=== PATIENT | female | born 1955 | race Caucasian/White ===

== ENCOUNTER → 2018-05-20 | Outpatient (CLI) | payer BC ==
--- NOTE | 2018-06-02 09:07 | MM ---
Reason for exam: screening (asymptomatic). Last mammogram was performed 8 years and 6 months ago. History: Patient is postmenopausal. Benign stereotactic core biopsy of the left breast. Took estrogen for 10 years beginning at age 40. Physical Findings: A clinical breast exam by your physician is recommended on an annual basis and results should be correlated with mammographic findings. MG 3D Screening Mammo W/Cad Bilateral CC and MLO view(s) were taken. Prior study comparison: September 12, 2016, mammogram, performed at [facility]. August 10, 2015, mammogram, performed at [facility]. The breast tissue is heterogeneously dense. This may lower the sensitivity of mammography. There are benign appearing round oval circumscribed stable bilateral breast masses back to 2014. No suspicious abnormality. Left biopsy marker noted. No significant changes when compared with prior studies. ASSESSMENT: Benign, BI-RAD 2 RECOMMENDATION: Routine screening mammogram of both breasts in 1 year.
== END | disposition home or self-care (01) ==
LOC: RADMAMWWP 12:38
PROVIDERS: ATTEND Internal Medicine
DX: Z12.31 Encounter for screening mammogram for malignant neoplasm of breast (principal)
CPT/HCPCS: 77063; 77067

== ENCOUNTER → 2018-07-21 | Outpatient (CLI) | payer BC ==
[2018-07-21 08:39] LABS: HCT 44.3 % (34.0-46.0); HGB 14.8 gm/dL (11.4-16.0); MCH 29.6 pg (25.0-35.0); MCHC 33.4 g/dL (31.0-37.0); MCV 88.6 fL (80.0-100.0); Mean Platelet Volume 6.8; Platelet Count 261 k/uL (150-450); RDW 13.5 % (11.5-15.5); WBC 5.1 k/uL (3.8-10.6)
[2018-07-21 08:50] LABS: Appearance,Urine Clear (Clear); Bilirubin,Urine Negative (Negative); Blood,Urine Negative (Negative); Color,Urine Light Yellow; Glucose,Urine (UA) Negative (Negative); Ketones,Urine Negative (Negative); Leukocyte Esterase,Urine Negative (Negative); Nitrite,Urine Negative (Negative); Protein,Urine Negative (Negative); Specific Gravity,Urine 1.007 (1.001-1.035); Urobilinogen,Urine <2.0 mg/dL (<2.0)
[2018-07-21 08:58] LABS: ALT 38 U/L (9-52); AST 27 U/L (14-36); Albumin 4.3 g/dL (3.5-5.0); Alkaline Phosphatase 52 U/L (38-126); Anion Gap 9 mmol/L; Blood Urea Nitrogen 14 mg/dL (7-17); Calcium 9.5 mg/dL (8.4-10.2); Carbon Dioxide 27 mmol/L (22-30); Chloride 104 mmol/L (98-107); Glucose 93 mg/dL (74-99); Phosphorus 4.3 mg/dL (2.5-4.5); Potassium 4.4 mmol/L (3.5-5.1); Sodium 140 mmol/L (137-145); Total Bilirubin 0.8 mg/dL (0.2-1.3); Total Protein 6.9 g/dL (6.3-8.2)
== END | disposition home or self-care (01) ==
LOC: LABWHC1 07:54
PROVIDERS: ATTEND Internal Medicine Nephrology
DX: N39.0 Urinary tract infection, site not specified (principal); N18.9 Chronic kidney disease, unspecified; D63.1 Anemia in chronic kidney disease; E83.39 Other disorders of phosphorus metabolism
CPT/HCPCS: 36415; 80053; 81003; 84100; 85027

== ENCOUNTER → 2018-08-13 | Outpatient (CLI) | payer BC ==
--- NOTE | 2018-08-13 12:33 | US ---
EXAMINATION TYPE: US kidneys/renal and bladder DATE OF EXAM: 08/13/2018 COMPARISON: NONE CLINICAL HISTORY: R10.9 Rt flank Pain. BILAT FLANK PAIN FOR YEARS, NO HEMATURIA, NO H/O STONES EXAM MEASUREMENTS: Right Kidney: 10.1 x 5.0 x 4.6 cm Left Kidney: 11.0 x 4.6 x 4.7 cm Right Kidney: No hydronephrosis or masses seen Left Kidney: No hydronephrosis or masses seen Bladder: wnl Bilateral Jets seen: Yes IMPRESSION: 1. Normal renal ultrasound.
== END | disposition home or self-care (01) ==
LOC: RADUSWWP 09:26
PROVIDERS: ATTEND Internal Medicine Nephrology
DX: R10.9 Unspecified abdominal pain (principal)
CPT/HCPCS: 76770

== ENCOUNTER → 2018-09-20 | Outpatient (CLI) | payer BC ==
[2018-09-20 09:00] LABS: Basophils # (A) 0.1 k/uL (0-0.2); Basophils % (A) 1 %; Eosinophils # (A) 0.1 k/uL (0-0.7); Eosinophils % (A) 1 %; HCT 42.9 % (34.0-46.0); HGB 14.8 gm/dL (11.4-16.0); Lymphocytes # (A) 1.9 k/uL (1.0-4.8); Lymphocytes % (A) 39 %; MCH 30.5 pg (25.0-35.0); MCHC 34.5 g/dL (31.0-37.0); MCV 88.3 fL (80.0-100.0); Mean Platelet Volume 6.4; Monocytes # (A) 0.2 k/uL (0-1.0); Monocytes % (A) 4 %; Neutrophils # (A) 2.7 k/uL (1.3-7.7); Neutrophils % (A) 54 %; Platelet Count 242 k/uL (150-450); RBC 4.85 m/uL (3.80-5.40); RDW 13.5 % (11.5-15.5)
[2018-09-20 09:04] LABS: Appearance,Urine Clear (Clear); Bilirubin,Urine Negative (Negative); Blood,Urine Negative (Negative); Color,Urine Light Yellow; Glucose,Urine (UA) Negative (Negative); Ketones,Urine Negative (Negative); Leukocyte Esterase,Urine Negative (Negative); Nitrite,Urine Negative (Negative); PH, Urine 6.5 (5.0-8.0); Protein,Urine Negative (Negative); Specific Gravity,Urine 1.011 (1.001-1.035); Urobilinogen,Urine <2.0 mg/dL (<2.0)
[2018-09-20 16:24] LABS: Iron Saturation 28.44 (12.00-45.00)
[2018-09-20 16:28] LABS: Albumin 4.6 g/dL (3.80-4.90); Anion Gap 7.5 mmol/L (4.00-12.00); Calcium 9.4 mg/dL (8.7-10.3); Carbon Dioxide 27.5 mmol/L (21.6-31.8); Magnesium 1.9 mg/dL (1.5-2.4); Parathyroid Hormone Intact 47.6 pg/mL (14.0-72.0); Phosphorus 3.6 mg/dL (2.4-5.1); Potassium 3.4 mmol/L (3.5-5.5); Uric Acid 3.9 mg/dL (2.9-7.7)
[2018-09-20 16:31] LABS: Vitamin D 25 Hydroxy 65.4 ng/mL (30.0-100.0)
[2018-09-20 17:59] LABS: Creatinine,Urine Random 64.6 mg/dL
[2018-09-20 19:00] LABS: Total Protein,Urine Random 4.7 mg/dL (0.0-13.5)
== END ==
LOC: LABWHC1 08:18
PROVIDERS: ATTEND Internal Medicine Nephrology
DX: N39.0 Urinary tract infection, site not specified (principal); E21.3 Hyperparathyroidism, unspecified; E55.9 Vitamin D deficiency, unspecified; D64.9 Anemia, unspecified; M10.9 Gout, unspecified; R80.9 Proteinuria, unspecified; R10.9 Unspecified abdominal pain
CPT/HCPCS: 36415; 80048; 81003; 82040; 82306; 82570; 82728; 83540; 83550; 83735; 83970; 84100; 84156; 84550; 85025

== ENCOUNTER → 2019-08-11 | Outpatient (CLI) | payer BC ==
--- NOTE | 2019-08-12 07:35 | US ---
EXAMINATION TYPE: US thyroid st tissue head/neck DATE OF EXAM: 08/11/2019 COMPARISON: US dated 07/10/2016 CLINICAL HISTORY: E04.9 Thyroid nodule. F/U nodules GLAND SIZE: Right Lobe: 4.6 x 1.6 x 1.7 cm Overall Parenchyma: heterogenous Left Lobe: 4.1 x 1.3 x 1.1 cm Overall Parenchyma: heterogeneous Isthmus Thickness: 0.3 cm The thyroid gland is diffusely hypervascular. NODULES RIGHT: # of nodules measured on right: 2 1. 0.8 X 0.5 x 0.7 cm hypoechoic mixed nodule at the upper pole with well-defined margins; This no dule is wider than tall and shows intranodular vascularity. Prior size: Not visualized on prior 2. 0.5 X 0.4 x 0.4 cm echogenic solid nodule at the lower pole with calcified rim. This nodule is w ider than tall and shows no intranodular vascularity. Prior size: 0.6 x 0.4 x 0.5 cm LEFT: # of nodules measured on left: 1 1. 0.4 X 0.4 x 0.4 cm echogenic solid nodule at the lower pole with calcified rim. This nodule is w ider than tall and shows no intranodular vascularity. Prior size: 0.4 x 0.4 x 0.4 cm Bilateral neck scanned, no evidence of lymphadenopathy. Multiple sub-centimeter nodules within right lobe, largest 2 measured. Single calcified nodule within left lobe. IMPRESSION: There are similar bilateral thyroid nodules with one new 8 mm right thyroid nodule seen t hat appears partially cystic. Diffuse thyroid heterogeneity and hypervascularity suggest underlying t hyroiditis.
== END | disposition home or self-care (01) ==
LOC: RADUSWWP 16:41
PROVIDERS: ATTEND Internal Medicine
DX: E04.1 Nontoxic single thyroid nodule (principal); R93.89 Abnormal findings on diagnostic imaging of other specified body structures
CPT/HCPCS: 76536

== ENCOUNTER 2020-02-21 11:42 | Emergency (ER) | payer BC ==
[2020-02-21] MEDS ORDERED: SODIUM CHLORIDE 0.9% 500 ML 500 ML IV ONE (12:07)
--- NOTE | 2020-02-21 12:12 | ED ---
Headache HPI - General Chief Complaint: Headache Stated Complaint: pain in neck and left ear Time Seen by Provider: 02/21/20 12:00 Mode of arrival: ambulatory Limitations: no limitations - History of Present Illness Initial Comments: 64 year feel presenting today for chief complaint of pain behind the left ear that radiates down towards the neck x 1 day. Patient states that she has had a very sharp pain that comes and goes to up-to-date since yesterday morning. She stated radiates down towards the left posterior aspect of the neck. Patient denies any anterior neck pain. Patient denies this being a "headache" more like head pain. She has difficulty describing the sensation. Patient states it is "electrifying" causing her to flail her arms. Patient denies vomiting, nausea, visual changes, history of aneursym, pain within the ear, fever, URI symptoms, cough. Patient states when she turns her head to the right she can get the pain at times to reproduce. Patient denies neck stiffness. Patient states she contacted her primary care office today Dr. Mckeon who instructed her to come to the ER for imaging studies. Patient states she did not feel like she needed to come in. Remaining ROS (-). Upon arrival patient is very pleasant appears well and currently asymptomatic. - Related Data Home Medications Medication Instructions Recorded Confirmed Loratadine [Claritin] 10 mg PO DAILY 08/29/14 09/01/14 Triamterene-Hctz 37.5-25Mg 1 tab PO DAILY 08/29/14 09/01/14 [Dyazide 37.5-25 Capsule] Previous Rx's Medication Instructions Recorded Cyclobenzaprine [Flexeril] 10 mg PO HS PRN 7 Days #7 tab 02/21/20 predniSONE 50 mg PO DAILY 5 Days #5 tab 02/21/20 Allergies Allergy/AdvReac Type Severity Reaction Status Date / Time Sulfa (Sulfonamide Allergy Rash/Hives Verified 02/21/20 11:55 Antibiotics) Tetracyclines Allergy Unknown Verified 02/21/20 11:55 Review of Systems ROS Statement: Those systems with pertinent positive or pertinent negative responses have been documented in the HPI. ROS Other: All systems not noted in ROS Statement are negative. Past Medical History Past Medical History: Hypertension, Seizure Disorder Additional Past Medical History / Comment(s): HAD ONE SEIZURE APPROX 2005, NONE SINCE, PERIPHERAL EDEMA History of Any Multi-Drug Resistant Organisms: None Reported Past Surgical History: Appendectomy, Hysterectomy, Orthopedic Surgery, Tonsillectomy Past Anesthesia/Blood Transfusion Reactions: No Reported Reaction Past Psychological History: No Psychological Hx Reported Smoking Status: Never smoker Past Alcohol Use History: Rare Past Drug Use History: None Reported General Exam - General Exam Comments Initial Comments: General: The patient is awake and alert, in no distress, and does not appear acutely ill. Eye: +3 mm pupils are equal, round and reactive to light, extra-ocular movements are intact. No nystagmus. There is normal conjunctiva bilaterally. No signs of icterus. Ears, nose, mouth and throat: There are moist mucous membranes and no oral lesions. No nuchal rigidity. Full range motion of the cervical spine without difficulty. Neck: The neck is supple, there is no tenderness or JVD. Cardiovascular: There is a regular rate and rhythm. No murmur, rub or gallop is appreciated. Respiratory: Lungs are clear to auscultation, respirations are non-labored, breath sounds are equal. No wheezes, stridor, rales, or rhonchi. Musculoskeletal: Normal ROM, no tenderness. Strength 5/5. Sensation intact. Radila pulses equal bilaterally 2+. Neurological: A&O x 3. CN II-XII intact, full strength of the UE and LE b/l. Coordination appears grossly intact. Speech is normal. Skin: Skin is warm and dry and no rashes or lesions are noted. Psychiatric: Cooperative, appropriate mood & affect, normal judgment. Limitations: no limitations Course Vital Signs 02/21/20 02/21/20 11:50 14:42 Temperature 97.9 F 98.3 F Pulse Rate 75 65 Respiratory 18 15 Rate Blood Pressure 137/85 143/86 O2 Sat by Pulse 99 99 Oximetry Medical Decision Making - Medical Decision Making Very well-appearing 64 year old female presented for posterior head pain. P atient states this does not feel like a headache he feels like is sharp shooting pain that radiates to the base the scalp. Patient has a lesions in the hair. Patient is no focal neurological deficits. Patient has no nuchal rigidity. Patient was sent in for imaging studies imaging studies revealed no acute intracranial process. Patient's pain controlled is colicky, not consistent. patient labs stable, VS wtihin acceptable limits. Ddx included occipital neuralgia, radiulopathy. Patient will be discharged with steroids. recommended close pcp f/u. Patient case discussed with Dr. Solano patient discharged appearing wel. - Lab Data Result diagrams: 02/21/20 12:24 02/21/20 12:24 Lab Results 02/21/20 02/21/20 Range/Units 12:24 12:24 WBC 5.9 (3.8-10.6) k/uL RBC 5.09 (3.80-5.40) m/uL Hgb 15.2 (11.4-16.0) gm/dL Hct 44.8 (34.0-46.0) % MCV 88.0 (80.0-100.0) fL MCH 29.9 (25.0-35.0) pg MCHC 33.9 (31.0-37.0) g/dL RDW 12.8 (11.5-15.5) % Plt Count 276 (150-450) k/uL Neutrophils % 59 % Lymphocytes % 31 % Monocytes % 6 % Eosinophils % 2 % Basophils % 1 % Neutrophils # 3.5 (1.3-7.7) k/uL Lymphocytes # 1.8 (1.0-4.8) k/uL Monocytes # 0.3 (0-1.0) k/uL Eosinophils # 0.1 (0-0.7) k/uL Basophils # 0.0 (0-0.2) k/uL Sodium 138 (137-145) mmol/L Potassium 3.5 (3.5-5.1) mmol/L Chloride 101 (98-107) mmol/L Carbon Dioxide 28 (22-30) mmol/L Anion Gap 9 mmol/L BUN 17 (7-17) mg/dL Creatinine 0.71 (0.52-1.04) mg/dL Est GFR (CKD-EPI)AfAm >90 (>60 ml/min/1.73 sqM) Est GFR (CKD-EPI)NonAf >90 (>60 ml/min/1.73 sqM) Glucose 93 (74-99) mg/dL Calcium 9.5 (8.4-10.2) mg/dL Total Bilirubin 1.0 (0.2-1.3) mg/dL AST 32 (14-36) U/L ALT 33 (4-34) U/L Alkaline Phosphatase 53 (38-126) U/L Total Protein 7.4 (6.3-8.2) g/dL Albumin 4.5 (3.5-5.0) g/dL Disposition Clinical Impression: Pleural thickening, Head pain Disposition: HOME SELF-CARE Condition: Good Instructions (If sedation given, give patient instructions): Acute Headache (ED) Additional Instructions: Please use medication as discussed. Please follow-up with family doctor in the next 2 days. Please return to emergency room if the symptoms increase or worsen or for any other concerns. Prescriptions: Cyclobenzaprine [Flexeril] 10 mg PO HS PRN 7 Days #7 tab PRN Reason: Muscle Spasm predniSONE 50 mg PO DAILY 5 Days #5 tab Is patient prescribed a controlled substance at d/c from ED?: No Referrals: Silvana Mckeon MD [Primary Care Provider] - 1-2 days Time of Disposition: 13:57
[2020-02-21 12:40] LABS: Basophils % (A) 1 %; Eosinophils # (A) 0.1 k/uL (0-0.7); Eosinophils % (A) 2 %; HCT 44.8 % (34.0-46.0); HGB 15.2 gm/dL (11.4-16.0); Lymphocytes # (A) 1.8 k/uL (1.0-4.8); Lymphocytes % (A) 31 %; MCH 29.9 pg (25.0-35.0); MCHC 33.9 g/dL (31.0-37.0); Mean Platelet Volume 7.1; Monocytes # (A) 0.3 k/uL (0-1.0); Monocytes % (A) 6 %; Neutrophils # (A) 3.5 k/uL (1.3-7.7); Neutrophils % (A) 59 %; Platelet Count 276 k/uL (150-450); RBC 5.09 m/uL (3.80-5.40); RDW 12.8 % (11.5-15.5); WBC 5.9 k/uL (3.8-10.6)
[2020-02-21 12:54] LABS: ALT 33 U/L (4-34); AST 32 U/L (14-36); African American GFR (CKD) >90 (>60 ml/min/1.73 sqM); Albumin 4.5 g/dL (3.5-5.0); Alkaline Phosphatase 53 U/L (38-126); Anion Gap 9 mmol/L; Blood Urea Nitrogen 17 mg/dL (7-17); Calcium 9.5 mg/dL (8.4-10.2); Carbon Dioxide 28 mmol/L (22-30); Chloride 101 mmol/L (98-107); Glucose 93 mg/dL (74-99); Non-African American GFR(CKD) >90 (>60 ml/min/1.73 sqM); Potassium 3.5 mmol/L (3.5-5.1); Sodium 138 mmol/L (137-145); Total Protein 7.4 g/dL (6.3-8.2)
--- NOTE | 2020-02-21 13:40 | CT ---
EXAMINATION TYPE: CT brain wo con DATE OF EXAM: 02/21/2020 HISTORY: Headache, neck pain CT DLP: 1089 mGycm. Automated Exposure Control for Dose Reduction was Utilized. TECHNIQUE: CT scan of the head is performed without contrast. COMPARISON: None FINDINGS: There is no acute intracranial hemorrhage or midline shift identified. There is diffuse v entricular and sulcal prominence consistent with diffuse age-related cerebral atrophy. Prominent adam vascular spaces seen inferior to the left lentiform nucleus on image 26. There is are few areas of l ow-attenuation in the periventricular white matter most commonly related to chronic small vessel isch emic change. The globes are intact and the visualized sinuses are clear. Rightward nasal septal dev iation is present. Incidentally noted partially empty sella turcica. IMPRESSION: No acute intracranial hemorrhage or midline shift.
--- NOTE | 2020-02-21 13:52 | CT ---
EXAMINATION TYPE: CT angio head neck DATE OF EXAM: 02/21/2020 HISTORY: ZHOU, neck pain COMPARISON: CT brain of the same date CT DLP: 430.2 mGycm. Automated Exposure Control for Dose Reduction was Utilized. TECHNIQUE: CTA scan of the neck is performed with IV Contrast, patient injected with 65 mL of Isovue 370, axial images are obtained, coronal and sagittal reformatted images are reviewed. Three-D recons tructed images are created on an independent workstation and reviewed. FINDINGS: Carotid/Vascular Structures: There is a conventional three-vessel branch pattern of the aortic arch. Main branch vessels are widely patent. Vertebral artery origins are also patent with dominance of the left vertebral artery. The common carotid arteries demonstrate no hemodynamically significant stenos is. There is very minimal nonhemodynamically significant calcific and noncalcific atheromatous plaqui ng of the right carotid bulb on axial image 44. The left carotid bulb is unremarkable. The cervical p ortions of the internal carotid arteries are widely patent. The right vertebral artery in the foramen magnum becomes diminutive in size but is grossly patent. The basilar artery and posterior circulatio n appear unremarkable. The petrous, cavernous, and supraclinoid portions of the internal carotid arteries bilaterally are un remarkable. The basilar tip and left ICA terminus appear very slightly bulbous on axial imaging howev er coronal and sagittal imaging do not demonstrate an aneurysmal appearance. Anterior communicating a rtery is patent as well as diminutive but present posterior communicating arteries therefore the circ le of Lewis appears complete. No large vessel hemodynamically significant arterial stenosis. Other: Right lateral multifocal pleural thickening is seen measuring up to 9 mm in greatest thickness . Emphysematous changes of the lung apices are seen with left apical blebs and biapical pleural paren chymal scarring. Minimal dependent subsegmental atelectasis is present. There are qaka-[id number] mu ltilevel degenerative changes of the spine with either limbus deformity or old well-corticated small fracture fragment of the anterior superior endplate of C4. No malalignment of the cervical spine. Mul tilevel uncovertebral hypertrophy and facet arthropathy. Spinal canal is limited on CT. Heterogenous thyroid gland is incidentally noted with a very small right thyroid nodule that could be further eval uated with ultrasound if clinically indicated. IMPRESSION: 1. No hemodynamically significant stenosis or occlusion of the major arterial vasculature of the head or neck. Slightly prominent basilar tip and left ICA terminus on axial images only. Reformatted imag es do not confirm the presence of an intracranial aneurysm. No intracranial aneurysm suspected. 2. Minimal nonhemodynamically significant atheromatous plaquing of the right carotid bulb. 3. Emphysematous changes of the lung apices and multifocal pleural thickening on the right. Follow up CT chest is recommended on a nonemergent basis for further characterization.
[2020-02-21 14:43] VITALS: BP 143/86; PULSE 65; RESP 15; TEMP 98.3
== END 2020-02-21 14:39 | disposition home or self-care (01) ==
LOC: EC 11:42
DX: R51 Headache (principal); R91.8 Other nonspecific abnormal finding of lung field; R60.9 Edema, unspecified; Z79.899 Other long term (current) drug therapy; Z88.2 Allergy status to sulfonamides; Z88.1 Allergy status to other antibiotic agents; Z86.69 Personal history of other diseases of the nervous system and sense organs
CPT/HCPCS: 99284; 96360; 96361; 36415; 80053; 85025; 70496; 70450; 70498; Q9967

== ENCOUNTER → 2020-05-11 | Outpatient (CLI) | payer MEDICARE ==
[2020-05-11 08:34] LABS: African American GFR (CKD) >90 (>60 ml/min/1.73 sqM); Blood Urea Nitrogen 15 mg/dL (7-17); Non-African American GFR(CKD) 83 (>60 ml/min/1.73 sqM)
--- NOTE | 2020-05-11 09:09 | CT ---
EXAMINATION TYPE: CT chest w con DATE OF EXAM: 05/11/2020 COMPARISON: 02/01/2020 HISTORY: Abnormal images of lung field CT DLP: 370.7 mGycm Automated exposure control for dose reduction was used. CONTRAST: CT scan of the chest is performed with IV Contrast, patient injected with 100 mL of Isovue 300. FINDINGS: LUNGS: The lungs are grossly clear, there is a 2 mm nodule right upper lobe axial image 28 2 small to characterize.. There is no pleural effusion or pneumothorax seen. The tracheobronchial tree is pa tent. Biapical pleural thickening noted. MEDIASTINUM: There are no greater than 1 cm hilar or mediastinal lymph nodes. No pericardial effusi on is seen. OTHER: Low-attenuation the liver can be associated with hepatic steatosis IMPRESSION: 1. Biapical pleural thickening with no acute process. Findings are likely chronic. There is a 2 mm no dule in the right upper lobe anterior segment which could be followed with 6 month basis. This is lik nasra a benign finding.
== END | disposition home or self-care (01) ==
LOC: RADCTMAIN 07:58
PROVIDERS: ATTEND Internal Medicine
DX: R91.1 Solitary pulmonary nodule (principal); J92.9 Pleural plaque without asbestos
CPT/HCPCS: 82565; 84520; 71260; 36415; Q9967

== ENCOUNTER → 2020-12-26 | Outpatient (CLI) | payer MEDICARE ==
[2020-12-26 13:59] LABS: African American GFR (CKD) >90 (>60 ml/min/1.73 sqM); Blood Urea Nitrogen 18 mg/dL (7-17); Non-African American GFR(CKD) >90 (>60 ml/min/1.73 sqM)
--- NOTE | 2020-12-26 14:45 | CT ---
EXAMINATION TYPE: CT chest w con DATE OF EXAM: 12/26/2020 COMPARISON: 05/11/2020 HISTORY: Lung nodules CT DLP: 363.0 mGycm Automated exposure control for dose reduction was used. TECHNIQUE: CT scan of the chest is performed with IV Contrast, patient injected with 100 mL of Isovue 300. MIP Images are created on CT scanner and reviewed. 3D reconstructed images are created on an independent workstation and reviewed. FINDINGS: LUNGS: Stable 2 mm nodule right upper lobe too small to characterize. Lungs are clear. No pleural eff usion or pneumothorax. No focal pneumonia. Biapical pleural thickening. Additional pleural-based thic kening also noted and appears stable from the prior exam. No consolidative pneumonia. No pleural effu neeraj or pneumothorax. Additional 7 mm nodule right lung base stable. MEDIASTINUM: There are no greater than 1 cm hilar or mediastinal lymph nodes. No pericardial effusi on is seen. OTHER: Hypertrophic and degenerative changes of the spine. Small hiatal hernia. Correlate for mild h epatic steatosis. IMPRESSION: 1. Stable right-sided pulmonary nodules unchanged from the prior exam. Recommend 6 month follow-up to confirm stability. Stability should be documented over 2 years to determine whether the lesion is be nign. 2. Correlate for mild COPD. 3. Stable pleural bilateral thickening.
--- NOTE | 2020-12-26 16:57 | US ---
EXAMINATION TYPE: US thyroid st tissue head/neck DATE OF EXAM: 12/26/2020 COMPARISON: 08/11/2019 CLINICAL HISTORY: 65-year-old female E04.1 Thyroid nodule. F/U TECHNIQUE: Multiple sonographic images of the thyroid gland are obtained. FINDINGS: GLAND SIZE: Right Lobe: 4.9 x 1.5 x 1.8 cm Overall Parenchyma: heterogenous Left Lobe: 3.2 x 1.1 x 1.0 cm Overall Parenchyma: heterogeneous Isthmus Thickness: 0.3 cm NODULES RIGHT: # of nodules measured on right: 2 1. 0.6 X 0.6 x 0.5 cm cystic or almost completely cystic, hypoechoic nodule in the upper pole, whic h is wider than tall, with smooth margins, without echogenic foci. Prior size: 0.8 x 0.5 x 0.7 cm 2. 0.5 X 0.5 x 0.4 cm solid or almost completely solid, hyperechoic nodule, which is wider than gunner l, with calcified margins, with rim calcification. Prior size: 0.6 x 0.5 x 0.4 cm LEFT: # of nodules measured on left: 1 1. 0.4 X 0.4 x 0.3 cm solid or almost completely solid, hyperechoic nodule, which is wider than gunner l, with calcified margins, with rim calcification. Prior size: 0.4 x 0.4 x 0.4 cm Bottling Attendant notes: Bilateral neck scanned, no evidence of lymphadenopathy. Stable sub-centimeter nodu les bilaterally. IMPRESSION: Stable to slightly smaller subcentimeter nodules measuring up to 6 mm on the right and 4 mm on the le ft. 2017 ACR TI-RADS LEVEL: TR4 (follow if greater than 1 cm) *Highest TI-RADS level nodule reported
--- NOTE | 2020-12-26 18:44 | BD ---
EXAMINATION TYPE: Axial Bone Density DATE OF EXAM: 12/26/2020 COMPARISON: NONE CLINICAL HISTORY: Postmenopausal screening Height: 5 FT 8 IN Weight: 203 FRAX RISK QUESTIONS: Alcohol (3 or more units per day): NO Family History (Parent hip fracture): NO Glucocorticoids (More than 3mos): NO (Ex: prednisone, prednisolone, methylprednisolone, dexamethasone, and hydrocortisone). History of Fracture in Adulthood: YES Secondary Osteoporosis: 1. Type 1 Diabetes: NO 2. Hyperthyroidism: NO 3. Menopause before 45:YES 4. Malnutrition: NO 5. Chronic liver disease: NO Rheumatoid Arthritis: NO Current Tobacco Use: NO RISK FACTORS HISTORY OF: History of Wrist Fracture: LEFT When: Surgery to Spine/Hip(right/left)/Wrist (right/left): LEFT WRIST When: Family History of Osteoporosis: YES Active: YES Diet low in dairy products/other sources of calcium: NO Postmenopausal woman: TOTAL HYST AGE 41 Take estrogen and/or progesterone medications: TOOK HRT FROM [age] VAGINAL CREAM NOW FOR ABOUT THE YEAR Lost more than 2 inches in height since high school: NO MEDICATIONS: Additional Medications: TRIAM/HCTZ. ALLOPURINOL,VIT D2,ZYRTC, Additional History: EXAM MEASUREMENTS: Bone mineral densitometry was performed using the [employer] System. Bone mineral density as measured about the Lumbar spine is: ----- L1-L4(G/cm2): 1.289 T Score Values are as follows: ----- L2: 0.3 ----- L3: 1.2 ----- L4: 1.4 ----- L1-L4: 0.9 BASELINE Bone mineral density about the R hip (g/cm2): 0.979 Bone mineral density about the L hip (g/cm2): 0.932 T Score values are as follows: -----R Neck: -0.4 -----L Neck: -0.8 -----R Total: 0.3 -----L Total: -0.1 BASELINE IMPRESSION: Normal (Values between +1 and -1 indicate normal bone mass). Consider repeating this study in 5 year s or sooner if there is some new clinical indication. NOTE: T-SCORE=SD OF THE YOUNG ADULT MEAN.
== END | disposition home or self-care (01) ==
LOC: RADMAMWWP 08:24
PROVIDERS: ATTEND Internal Medicine
DX: J92.9 Pleural plaque without asbestos (principal); R91.8 Other nonspecific abnormal finding of lung field; E04.2 Nontoxic multinodular goiter; M89.9 Disorder of bone, unspecified
CPT/HCPCS: 82565; 84520; 77080; 76536; 71260; 36415; Q9967

== ENCOUNTER → 2021-07-05 | Outpatient (CLI) | payer MEDICARE ==
[2021-07-05 09:47] LABS: African American GFR (CKD) >90 (>60 ml/min/1.73 sqM); Blood Urea Nitrogen 20 mg/dL (7-17); Non-African American GFR(CKD) 85 (>60 ml/min/1.73 sqM)
--- NOTE | 2021-07-05 10:32 | CT ---
EXAMINATION TYPE: CT chest w con DATE OF EXAM: 07/05/2021 COMPARISON: 12/26/2020 HISTORY: lung nodule CT DLP: 659 mGycm Automated exposure control for dose reduction was used. CONTRAST: CT scan of the chest is performed with IV Contrast, patient injected with 100 mL of Isovue 300. FINDINGS: LUNGS: 6 mm right lower lobe pulmonary nodule persists. As seen best on image 55. Previously noted 2 mm right upper lobe pulmonary nodule is not redemonstrated at this time. There is mild scattered pleu ral thickening. This is unchanged. There is no pleural effusion or pneumothorax seen. The tracheobro nchial tree is patent. MEDIASTINUM: There are no greater than 1 cm hilar or mediastinal lymph nodes. No pericardial effusi on is seen. Thoracic aorta is of normal caliber. The heart is not enlarged. UPPER ABDOMEN: No significant abnormality appreciated. OTHER: No additional significant abnormality is seen. IMPRESSION: Essentially stable right lower lobe pulmonary nodule. Previously noted right upper lobe nodule is not redemonstrated at this time.
== END | disposition home or self-care (01) ==
LOC: RADCTMAIN 09:04
PROVIDERS: ATTEND Internal Medicine
DX: R91.1 Solitary pulmonary nodule (principal)
CPT/HCPCS: 82565; 84520; 71260; 36415; Q9967

== ENCOUNTER 2021-09-03 16:36 | Emergency (ER) | payer MEDICARE ==
[2021-09-03 18:11] VITALS: RESP 18
--- NOTE | 2021-09-03 19:29 | ED ---
General Adult HPI - General Chief complaint: Upper Respiratory Infection Stated complaint: covid+, infusion Time Seen by Provider: 09/03/21 19:09 Source: patient, RN notes reviewed, old records reviewed Mode of arrival: ambulatory Limitations: no limitations - History of Present Illness Initial comments: 66-year-old female presenting for monoclonal antibody infusion. Patient was sent in by her primary care physician for infusion. She has been sick for approximately 4 days. She reports mostly upper respiratory symptoms. No vomiting or diarrhea. No dyspnea. She has been monitoring her oxygen level at home and states it has been in the mid 90s. Patient is otherwise quite healthy. She was vaccinated in November of this year. - Related Data Home Medications Medication Instructions Recorded Confirmed Loratadine [Claritin] 10 mg PO DAILY 08/29/14 09/01/14 Triamterene-Hctz 37.5-25Mg 1 tab PO DAILY 08/29/14 09/01/14 [Dyazide 37.5-25 Capsule] Previous Rx's Medication Instructions Recorded Cyclobenzaprine [Flexeril] 10 mg PO HS PRN 7 Days #7 tab 02/21/20 predniSONE 50 mg PO DAILY 5 Days #5 tab 02/21/20 Allergies Allergy/AdvReac Type Severity Reaction Status Date / Time Sulfa (Sulfonamide Allergy Rash/Hives Verified 09/03/21 18:11 Antibiotics) Tetracyclines Allergy Unknown Verified 09/03/21 18:11 Review of Systems ROS Statement: Those systems with pertinent positive or pertinent negative responses have been documented in the HPI. ROS Other: All systems not noted in ROS Statement are negative. Past Medical History Past Medical History: Hypertension, Seizure Disorder Additional Past Medical History / Comment(s): HAD ONE SEIZURE APPROX 2005, NONE SINCE, PERIPHERAL EDEMA History of Any Multi-Drug Resistant Organisms: None Reported Past Surgical History: Appendectomy, Hysterectomy, Orthopedic Surgery, Tonsillectomy Past Anesthesia/Blood Transfusion Reactions: No Reported Reaction Past Psychological History: No Psychological Hx Reported Past Alcohol Use History: Rare Past Drug Use History: None Reported General Exam Limitations: no limitations General appearance: alert, in no apparent distress Head exam: Present: atraumatic, normocephalic Eye exam: Present: normal appearance, PERRL ENT exam: Present: normal exam Neck exam: Present: normal inspection. Absent: tenderness, meningismus Respiratory exam: Present: normal lung sounds bilaterally. Absent: respiratory distress, wheezes, rales, rhonchi Cardiovascular Exam: Present: regular rate, normal rhythm GI/Abdominal exam: Present: soft. Absent: distended, tenderness, guarding Extremities exam: Present: normal inspection Neurological exam: Present: alert, oriented X3, CN II-XII intact, normal gait. Absent: motor sensory deficit Psychiatric exam: Present: normal affect, normal mood Skin exam: Present: warm, dry, intact Course Vital Signs 09/03/21 18:00 Temperature 97.4 F L Pulse Rate 85 Respiratory 18 Rate Blood Pressure 113/79 O2 Sat by Pulse 99 Oximetry Medical Decision Making - Medical Decision Making Patient is well-appearing, vaccinated against coronavirus. Will be given mo noclonal antibodies in the emergency department. Strict return parameters were discussed. Patient will follow with the primary care physician. Disposition Clinical Impression: COVID-19 Disposition: HOME SELF-CARE Condition: Good Instructions (If sedation given, give patient instructions): Coronavirus Disease 2019 (COVID-19) Is patient prescribed a controlled substance at d/c from ED?: No Referrals: Silvana Mckeon MD [Primary Care Provider] - 1-2 days
[2021-09-03] MEDS ORDERED: SODIUM CHLORIDE 0.9% 50 ML IVPB ONE (19:45)
[2021-09-03] MEDS ORDERED: CASIRIVIMAB/IMDEVIMAB (EUA) 1,200 MG in SODIUM CHLORIDE 0.9% 100 ML IVPB ONE (19:45)
[2021-09-03 20:50] VITALS: BP 122/78; PULSE 78; TEMP 98.6
== END 2021-09-03 20:56 | disposition home or self-care (01) ==
LOC: EC 16:36
DX: U07.1 COVID-19 (principal); I10 Essential (primary) hypertension; Z88.2 Allergy status to sulfonamides; Z90.49 Acquired absence of other specified parts of digestive tract; Z90.710 Acquired absence of both cervix and uterus; Z90.89 Acquired absence of other organs
CPT/HCPCS: 99283; 96365; Q0243

== ENCOUNTER → 2025-01-10 | Outpatient (CLI) | payer MEDICARE ==
--- NOTE | 2025-01-10 11:29 | CT ---
EXAMINATION TYPE: CT abdomen pelvis wo con DATE OF EXAM: 01/10/2025 11:06 AM COMPARISON: CT abdomen pelvis most recent from 07/05/2021 CLINICAL INDICATION: Female, 69 years old with history of R10.84 GENERALIZED ABDOMINAL PAIN; ABD PAIN TECHNIQUE: Axial CT abdomen pelvis wo con;Sagittal and coronal reformats were created on a separate workstation. Contrast used: mL of , (none if empty) Oral contrast used: with Oral Contrast (none if empty) CT DLP: 655.7 mGycm, Automated exposure control for dose reduction was used. FINDINGS: LOWER CHEST: 7 mm nodule in the right posterior costophrenic angle may be fractionally larger where measured 6 mm. ABDOMEN LIVER: Unremarkable GALLBLADDER AND BILE DUCTS: Unremarkable. PANCREAS: Unremarkable. SPLEEN: Unremarkable. ADRENAL GLANDS: Unremarkable. KIDNEYS AND URETERS: No evidence of hydronephrosis or renal calculus. The ureters are unremarkable. PELVIS BLADDER: No evidence for wall thickening or mass given limitations of exam. REPRODUCTIVE: The uterus is surgically absent. ABDOMEN & PELVIS STOMACH AND BOWEL: No evidence of bowel obstruction. Appendix is not visualized and may be surgically absent. The terminal ileum is within normal limits. Oral contrast extends to the mid transverse colo n. PERITONEUM/RETROPERITONEUM: No evidence of pneumoperitoneum or free fluid. VASCULATURE: No evidence of aortic aneurysm. MUSCULOSKELETAL: No acute osseous abnormalities. Mild disc degeneration changes are present throughou t the thoracolumbar spine. Grade 1 anterolisthesis of L4 and L5. 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 LYMPH NODES: No gross evidence for lymphadenopathy. SOFT TISSUE/ABDOMINAL WALL: Unremarkable IMPRESSION: 1. No evidence for obstructive uropathy or renal calculus. The appendix is not definitively visualiz ed may be surgically absent. 2. Terminal ileum appears within normal limits. 3. Right lower lobe costophrenic angle nodule measuring 7 mm previously 6 on 07/05/2021. [facility], , 01/10/2025 11:26 AM
== END | disposition home or self-care (01) ==
LOC: RADCTMAIN 09:21
PROVIDERS: ATTEND Internal Medicine
DX: R10.84 Generalized abdominal pain (principal); R91.1 Solitary pulmonary nodule
CPT/HCPCS: 74176